=== PATIENT | female | born 1945 | race Caucasian/White ===

== ENCOUNTER 2018-02-13 21:34 | Emergency (ER) | payer OTHER, MEDICARE ==
[~2018-02-13] VITALS: Ht 170.2 cm; Wt 80.9 kg
[~2018-02-13 21:34] MED LIST: CALCIO DEL MAR500 MG PO; Ecotrin PO; Feosol PO; Fish Oil PO; LEVOXYL75 MCG PO; Levothroid,Synthroid PO; Martinic PO; Norvasc PO; PROTONIX20 MG PO; Protonix PO; Senokot S,Pericolace PO; Vicodin,Norco 5/325 PO; Vitamin D PO; celeBREX PO
[2018-02-13 22:14] LABS: HEMATOCRIT 42.9 % (36.0-46.0); HEMOGLOBIN 14.7 G/DL (11.9-15.5); MCH 31.1 PG (29.0-34.0); MCHC 34.3 G/DL (30.0-36.0); MCV 90.9 FL (83-99); PLATELET COUNT 320 K/uL (156-360); RBC DIS.WIDTH-CV 12.4 % (11.8-14.6); RBC DIS.WIDTH-SD 41.4 % (39-53); RED BLOOD COUNT 4.72 M/uL (3.80-5.20); WHITE BLOOD COUNT 6.2 K/uL (4.1-10.2)
[2018-02-13 22:23] LABS: CHLORIDE 106 mEq/L (99-109); POTASSIUM 3.5 mEq/L (3.7-5.4); SODIUM 142 mEq/L (136-147)
[2018-02-13 22:25] LABS: GLUCOSE 126 mg/dL (70-99)
[2018-02-13 22:29] LABS: CREATININE 1.1 mg/dL (0.6-1.3); GFR ESTIMATE (CALCULATED) 52 mL/min/
[2018-02-13 22:30] LABS: UREA NITROGEN (BUN) 17 mg/dL (9-23)
[2018-02-13 22:34] LABS: TROP-I INTERPRETATION NEGATIVE; TROPONIN-I < 0.01 ng/mL (0.0-0.30)
[2018-02-13 23:00] LABS: LIPASE 22 U/L (1.0-51.0)
[2018-02-13 23:56] LABS: APPEARANCE CLEAR ((CLEAR)); BILIRUBIN NEGATIVE; BLOOD SMALL; COLOR COLORLESS ((YELLOW)); GLUCOSE (STRIP) NEGATIVE; KETONES NEGATIVE; LEUKOCYTES NEGATIVE; NITRITE NEGATIVE; PROTEIN (STRIP) NEGATIVE; SPECIFIC GRAVITY 1.006 (1.000-1.030); UROBILINOGEN 0.2 MG/DL (0.2-1.0)
[2018-02-13 23:58] LABS: BACTERIA NONE SEEN /HPF; EPITHELIAL CELLS NONE SEEN /HPF; MUCUS NONE SEEN /LPF; RED BLOOD CELLS 0-5 /HPF (0-5); UCUL ADDED? NO; WHITE BLOOD CELLS 0-5 /HPF (0-5)
[2018-02-14 00:39] LABS: TROP-I INTERPRETATION NEGATIVE; TROPONIN-I 0.02 ng/mL (0.0-0.30)
[2018-02-14 02:39] LABS: TROP-I INTERPRETATION NEGATIVE; TROPONIN-I 0.02 ng/mL (0.0-0.30)
[2018-02-14 03:14] VITALS: BP 158/77
== END 2018-02-14 03:16 | disposition home or self-care (01) ==
LOC: EME 21:34
PROVIDERS: Emergency Medicine
DX: R10.12 Left upper quadrant pain (principal); R07.89 Other chest pain; I10 Essential (primary) hypertension; K21.9 Gastro-esophageal reflux disease without esophagitis; G43.909 Migraine, unspecified, not intractable, without status migrainosus; F41.9 Anxiety disorder, unspecified; F32.9 Major depressive disorder, single episode, unspecified
CPT/HCPCS: 71046; 71275; 74177; 80048; 81003; 83690; 84484; 85027; 85379; 93005; 99281; 99284; J7040